=== PATIENT | female | born 1960 | race Caucasian/White ===

== ENCOUNTER 2023-12-05 12:37 | Emergency (ER) | payer OTHER, SELFPAY ==
[2023-12-05] VITALS (7 sets, daily range): BP systolic 156–196; BP diastolic 58–91; PULSE 66–78; RESP 16–22; TEMP 35.8; O2SAT 98–100; BMI 29.3
--- NOTE | 2023-12-05 13:57 | RAD_ITS ---
STUDY: X-RAY CHEST REASON FOR EXAM: Female, 63 years old. SOB . Cold-like symptoms. TECHNIQUE: PA and lateral views of the chest. COMPARISON: None. FINDINGS: EKG electrodes are seen. Minimal increased linear markings at the lung bases slightly more prominent at the left lung base suggestive of either scarring and/or linear atelectasis. There is no demonstrated pleural abnormality. Normal size heart. Normal mediastinum and magdalena. Normal visualized pulmonary arteries. Normal visualized aortic arch and descending thoracic aorta. There is demineralization of the osseous structures. Prior ORIF of the left clavicle. There is no demonstrated abnormality of the visualized soft tissue structures of the upper abdomen. RAD/Chest PA and Lateral IMPRESSION: Mild increased linear markings at the lung bases slightly more prominent at the left lung base suggestive of either linear atelectasis and/or scarring. Electronically Signed: Serge Markham MD at 14:14 EDT ,
--- NOTE | 2023-12-05 14:16 | EKG12_ITS ---
Test Reason : CP/SOB Blood Pressure : / mmHG Vent. Rate : 066 BPM Atrial Rate : 066 BPM P-R Int : 160 ms QRS Dur : 094 ms QT Int : 434 ms P-R-T Axes : 057 -38 052 degrees QTc Int : 454 ms Normal sinus rhythm Left axis deviation Moderate voltage criteria for LVH, may be normal variant ( R in aVL , Duane product ) Abnormal ECG Confirmed by ELLIOT ESPINOZA, ROSANNA ([id number]), newspaper or periodical editor DARNELL CAMARILLO ([id number]) on 12/06/2023 10:08:35 AM Referred By: Confirmed By:ROSANNA ZARATE MD
--- NOTE | 2023-12-05 14:16 | EDS_ITS ---
HPI History of Present Illness Chief Complaint: Shortness of Breath Narrative Narrative: 63-year-old female past medical history of seasonal allergies, irritable bowel syndrome presents with shortness of breath that she has had for over a month. She states she has had upper respiratory infection type symptoms for a while. On Monday, 4 days ago, she went to urgent care because her blood pressure was low, and she was feeling lightheaded. She had a pulse ox of 96%. They started her on medication including an antibiotic for 5 days, and a cough medicine. She presents today because she states her blood pressure was low at 107 systolic again, and she had severe shortness of breath. Was mildly pleuritic. She denies any DVT or PE risk factors. No exacerbating or alleviating factors. She states that she had a reaction and a experience back in the s and so they diagnosed her with an AL from EKG changes at [place]. Additionally, she states she was recently diagnosed with hypercholesterolemia. [facility] Medical History High cholesterol Endometriosis Myocardial infarction Home Medications ?Medication ?Instructions ?Recorded ?Last Taken ?Type albuterol sulfate 90 mcg/actuation 2 inh inhalation Q6H 12/05/23 Unknown History breath activated powder inhaler aspirin 81 mg capsule 81 mg PO DAILY 12/05/23 Unknown History azelastine 205.5 mcg (0.15 %) 205.5 mcg intranasal DAILY 12/05/23 Unknown History nasal spray (Astepro Allergy) estradiol 0.01% (0.1 mg/gram) 0.25 appful vaginal .weekly 12/05/23 Unknown History vaginal cream fluconazole 150 mg tablet 150 mg PO DAILY 12/05/23 Unknown History fluticasone propionate 50 1 spray intranasal DAILY PRN 12/05/23 Unknown History mcg/actuation nasal allergy symptoms spray,suspension lansoprazole 30 mg capsule,delayed 30 mg PO DAILY 12/05/23 Unknown History release levofloxacin 750 mg tablet 750 mg PO DAILY 12/05/23 Unknown History loratadine 10 mg tablet (Allergy 10 mg PO DAILY 12/05/23 Unknown History Relief (loratadine)) phenazopyridine 200 mg tablet 200 mg PO Q8H 12/05/23 Unknown History rosuvastatin 5 mg tablet (Crestor) 5 mg PO DAILY 12/05/23 Unknown History tenapanor 50 mg tablet (Ibsrela) 50 mg PO BID 12/05/23 Unknown History tizanidine 2 mg capsule See Rx Instructions PO QHS PRN 12/05/23 Unknown History muscle spasticity Allergy/AdvReac Type Severity Reaction Status Date / Time cefdinir Allergy Intermediate Rash Verified 12/05/23 12:43 egg (eggs) Allergy Mild SORE THROAT Verified 12/05/23 12:43 lactose Allergy Mild SORE THROAT Verified 12/05/23 12:43 nitrofurantoin Allergy Unknown PT UNABLE Verified 12/05/23 12:43 TO RESPOND-NEEDS F/U doxycycline AdvReac Severe MENTAL Verified 12/05/23 12:43 STATUS CHANGE promethazine AdvReac Severe CONVULSIONS Verified 12/05/23 12:43 benzonatate AdvReac Intermediate Nausea Verified 12/05/23 12:43 diphenhydramine (From AdvReac Intermediate FATIGUE Verified 12/05/23 12:43 Benadryl) gabapentin AdvReac Intermediate HEADACHE Verified 12/05/23 12:43 mold (mold spores) AdvReac Intermediate CONGESTION Verified 12/05/23 12:43 Penicillins AdvReac Intermediate Nausea Verified 12/05/23 12:43 sucralfate AdvReac Intermediate Vomiting Verified 12/05/23 12:43 Surgical History History of tonsillectomy and adenoidectomy History of hysterectomy H/O shoulder surgery Social History Smoking Status: Never smoker ROS ROS ED ROS Narrative Constitutional: No fever, no chills recently. HEENT: No sore throat. No neck pain. No loss of vision. No rhinorrhea. Cardiovascular: No chest pain. No palpitations. No pedal edema. Respiratory: Occasional cough. Positive severe shortness of breath. Abdominal: No abdominal pain. No nausea. No vomiting. Genitourinary: No dysuria. No hematuria. Musculoskeletal: No myalgias. No arthralgias. Neurologic: No headaches. No dizziness. Recent lightheadedness. Skin: No rash. No change in color. EXAM Physical Exam Narrative Exam Narrative: Afebrile. Vital signs noted. Nontoxic-appearing. Regular rate and rhythm. Lungs are clear to auscultation bilaterally. No wheezing or stridor. Abdomen soft, nontender with normal active bowel sounds. Const Vital Signs: 12/05/23 12:43 12/05/23 12:59 12/05/23 13:11 Temperature 96.5 F L Temperature Source Temporal Pulse Rate 78 66 Respiratory Rate 16 20 H Respiratory Effort Short of Breath Blood Pressure 196/91 H 166/77 H Blood Pressure Mean 126 106 Pulse Ox 100 100 Oxygen Delivery Method Room Air Room Air Room Air 12/05/23 14:10 12/05/23 14:43 12/05/23 15:00 Temperature Temperature Source Pulse Rate 68 Respiratory Rate 22 H 22 H Respiratory Effort Blood Pressure 157/58 H 156/71 H Blood Pressure Mean 91 99 Pulse Ox 100 98 98 Oxygen Delivery Method Room Air Room Air Room Air MDM MDM MDM Narrative Medical decision making narrative: Differential diagnosis includes but not limited to pneumonia versus pneumothorax versus pulmonary embolism versus ACS. I have low suspicion for pulmonary embolism as she is PERC negative and her pulse ox is 100% on room air. D-dimer will be obtained to help rule this out. Although she stated she initially was hypotensive at home, she was hypertensive in triage, and her blood pressure has come down to 157/58 currently. Chest x-ray will be obtained as well as basic laboratory work including a single troponin and a D-dimer. I reviewed her laboratory work and she has normal white count of 5.9, hemoglobin normal at 14.0, hematocrit 43.1 with platelet count normal at 277. Sodium is normal at 143 with potassium of 4.0, chloride slightly elevated at 111 which I think is nonspecific, BUN normal at 11 and creatinine 0.9. High-sensitivity troponin is 6. Her shortness of breath has been ongoing for months. I do not feel she needs serial enzymes. Her D-dimer is negative at less than 0.27. I do not feel she needs a CTA and I feel that pulmonary embolism has been ruled out. Chest x-ray interpreted by myself independently shows no evidence of pneumothorax or pneumonia. I reviewed the radiology report which confirms my independent interpretation and comments on linear atelectasis versus scarring. This point in time, I do not feel that she requires observation or admission. Patient was reassured. She was told to finish the rest of her antibiotic, and she has an inhaler that she can use for her shortness of breath. She will follow-up with her primary care provider, and she and her state that they have already seen a organ assembler. She may need referral back to 1 given her shortness of breath. I feel she can be discharged to follow-up. Return instructions reviewed. Disposition is discharged home in stable condition. History & Record Review Discussion w/independent historian: Patient Lab Data Attestation: I reviewed the patient's lab results. Labs: Laboratory Results - last 24 hr 12/05/23 14:45 WBC 5.9 RBC 4.29 Hgb 14.0 Hct 43.1 MCV 100.5 H MCH 32.6 H MCHC 32.5 RDW Std Deviation 45.6 H RDW Coeff of Michael 12.3 Plt Count 277 MPV 9.8 Immature Gran % (Auto) 0.200 Neut % (Auto) 50.8 Lymph % (Auto) 36.0 [place] % (Auto) 10.1 H Eos % (Auto) 2.2 Baso % (Auto) 0.7 Absolute Neuts (auto) 3.0 Absolute Lymphs (auto) 2.11 Nucleated RBC % 0 D-Dimer Quant (PE/DVT) < 0.27 L Sodium 143 Potassium 4.0 Chloride 111 H Carbon Dioxide 25.0 Anion Gap 7 BUN 11 Creatinine 0.90 Estim Creat Clear Calc 74.09 Est GFR (MDRD) Af Amer 81 Est GFR (MDRD) Non-Af 67 BUN/Creatinine Ratio 12.2 Glucose 92 Calcium 9.2 Troponin I High Sens 6 Radiography Diagnostic Testing: Clinical Impression(s) from Imaging Studies Chest X-Ray 12/05/23 13:57 IMPRESSION: Mild increased linear markings at the lung bases slightly more prominent at the left lung base suggestive of either linear atelectasis and/or scarring. Electronically Signed: Serge Markham MD at 14:14 EDT , Discharge Plan Triage Chief Complaint: Shortness of Breath ED Provider: Marcin Christiansen Dx/Rx/DC Orders Clinical Impression: Shortness of breath, Dyspnea Instructions: ED Dyspnea Prescriptions: No Action rosuvastatin [Crestor] 5 mg tablet 5 mg PO DAILY levofloxacin 750 mg tablet 750 mg PO DAILY Ibsrela 50 mg tablet 50 mg PO BID Rx Instructions: must administer immediately before first meal of day/breakfast and dinner lansoprazole 30 mg capsule,delayed release(DR/EC) 30 mg PO DAILY phenazopyridine 200 mg tablet 200 mg PO Q8H tizanidine 2 mg capsule See Rx Instructions PO QHS PRN (Reason: muscle spasticity) Rx Instructions: Take 1/2 to 1 tablet orally at bedtime PRN; aspirin 81 mg capsule 81 mg PO DAILY loratadine [Allergy Relief (loratadine)] 10 mg tablet 10 mg PO DAILY fluconazole 150 mg tablet 150 mg PO DAILY albuterol sulfate 90 mcg/actuation aerosol powdr breath activated 2 inh inhalation Q6H fluticasone propionate 50 mcg/actuation spray,suspension 1 spray intranasal DAILY PRN (Reason: allergy symptoms) Rx Instructions: administer into each nostril azelastine [Astepro Allergy] 205.5 mcg (0.15 %) spray,non-aerosol 205.5 mcg intranasal DAILY Rx Instructions: administer into each nostril estradiol 0.01 % (0.1 mg/gram) cream 0.25 appful vaginal .weekly Rx Instructions: for 14 days Primary Care Provider: Farideh Vera Referrals: [facility] Doctor,Out of [Non-Staff] - Activity Restrictions/Additional Instructions: Follow-up with your primary care provider if not improving in the next week. You may need referral back to the organ assembler. Return with new or worsening symptoms. Print Language: [place] Disposition Disposition: Home, Self Care
--- NOTE | 2023-12-05 14:32 | NURSING ---
NO OLD EKGS
[2023-12-05 14:55] LABS: Absolute Lymphocyte Count 2.11 X10^3/uL (0.83-4.51); Basophil# 0.04 X10^3/uL; Basophil% 0.7 % (0-1); Eosinophil# 0.13 X10^3/uL; Eosinophils% 2.2 % (0-5); Hematocrit 43.1 % (37-47); Lymphocyte # 2.11 X10^3/ul (0.83-4.51); Mean Corp Hgb Conc 32.5 g/dL (32-36); Mean Corpuscular Hgb 32.6 pg (27.0-32.0); Mean Corpuscular Volume 100.5 fL (81-99); Mean Platelet Vol. 9.8 fl (6.2-12.0); Monocyte# 0.59 X10^3/uL; Monocyte% 10.1 % (0-10); NRBC Flagged by Analyzer 0 % (0-5); Neutrophil # 2.98 X10^3/uL (2.7-7.7); Neutrophil % 50.8 % (47-70); Platelet Count 277 K/mm3 (150-450); RBC Distribution Width CV 12.3 % (11.6-14.6); RBC Distribution Width SD 45.6 fl (35.1-43.9); Red Blood Count 4.29 M/mm3 (4.2-5.4); White Blood Count 5.9 K/mm3 (4.4-11.0)
[2023-12-05 15:11] LABS: Anion Gap 7 (5-15); BUN 11 mg/dL (7-18); BUN/Creat Ratio 12.2 RATIO (10-20); Calcium,Total 9.2 mg/dL (8.5-10.1); Chloride 111 mmol/L (98-107); D-Dimer Quantitative (DVT/PE) < 0.27 FEU/ug/m (0.27-0.49); EST Glomerular Filtration Rate 67 mL/min (>60); Est Glom Filt Rate - Afr Amer 81 mL/min (>60); Estimated Creatinine Clearance 74.09 ml/min; Glucose 92 mg/dL (74-106); Sodium Level 143 mmol/L (136-145); Troponin-I HS 6 pg/mL (3.0-54.0)
== END 2023-12-05 15:48 | disposition home or self-care (01) ==
PROVIDERS: Emergency Provider Emergency Medicine; PCP Family Medicine; Visit Provider Emergency Medicine
DX: R06.02 Shortness of breath (principal); E78.00 Pure hypercholesterolemia, unspecified; I25.2 Old myocardial infarction; Z79.82 Long term (current) use of aspirin; Z79.899 Other long term (current) drug therapy
CPT/HCPCS: 71046; 80048; 84484; 85025; 85379; 93005; 99284; A4216